=== PATIENT | female | born 2000 | race Caucasian/White ===

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

== ENCOUNTER 2022-01-21 17:33 | Outpatient (REF) | payer OTHER, SELFPAY | END 2022-01-21 17:34 | disposition home or self-care (01) | LOC: LBN 17:33 | PROVIDERS: PCP Nurse Practitioner Family; Visit Provider Physician Assistant Medical | DX: R35.0 Frequency of micturition (principal) | CPT/HCPCS: 87077; 87086; 87186 ==

== ENCOUNTER 2022-01-24 09:22 | Outpatient (REF) | payer OTHER, SELFPAY ==
[2022-01-24 15:27] LABS: HCT 46.3 % (36.0-46.0); HGB 14.9 g/dL (11.2-15.7); MCH 28.2 pg (27.0-33.0); MCHC 32.2 % (32.0-36.0); MCV 88 fL (80-95); MPV 12.1 fL (8.0-11.0); Platelet Count 334 10^3/uL (130-400); RBC 5.29 10^6/uL (3.93-5.22); RDW 12.5 % (11.7-14.6); RDW-SD 40.4 fL; WBC 8.54 10^3/uL (4.4-10.8)
[2022-01-24 16:30] LABS: Vitamin D 25 Total 45.8 ng/mL (30-100)
[2022-01-24 16:35] LABS: TSH (W/Ref FT4) < 0.01 uIU/mL (0.36-3.74)
[2022-01-24 16:51] LABS: FREE T4 2.35 ng/dL (0.76-1.46)
== END 2022-01-24 09:23 | disposition home or self-care (01) ==
LOC: NCHCN 09:22
PROVIDERS: PCP Nurse Practitioner Family; Visit Provider Nurse Practitioner Family
DX: F41.8 Other specified anxiety disorders (principal); F32.9 Major depressive disorder, single episode, unspecified; F98.8 Other specified behavioral and emotional disorders with onset usually occurring in childhood and adolescence
CPT/HCPCS: 82306; 85027; 84439; 84443

== ENCOUNTER 2022-02-09 18:17 | Outpatient (REF) | payer OTHER, SELFPAY ==
[2022-02-09 15:58] LABS: Vitamin B12 536 pg/mL (193-986)
[2022-02-09 16:19] LABS: TSH < 0.01 uIU/mL (0.36-3.74)
[2022-02-09 22:36] LABS: Thyroglobulin Antibody 111 U/mL (<=60); Thyroperoxidase Antibody 110 U/mL (<=60)
== END 2022-02-09 18:18 | disposition home or self-care (01) ==
LOC: NCHCN 18:17
PROVIDERS: PCP Nurse Practitioner Family; Visit Provider Nurse Practitioner Family
DX: R89.9 Unspecified abnormal finding in specimens from other organs, systems and tissues (principal)
CPT/HCPCS: 86376; 82607; 84443

== ENCOUNTER 2022-05-24 15:19 | Outpatient (REF) | payer OTHER, SELFPAY ==
[2022-05-24 15:32] LABS: Abs Immature Grans 0.02 10^3/uL (0.0-0.06); Absolute Basophil Count 0.04 10^3/uL (0.0-0.2); Absolute Eosinophil Count 0.43 10^3/uL (0.0-0.7); Absolute Lymphocyte Count 3.36 10^3/uL (1.2-3.4); Absolute Monocyte Count 0.72 10^3/uL (0.1-0.8); Absolute Neutrophil Count 5.64 10^3/uL (1.2-6.7); Basophils % 0.4; Eosinophils % 4.2; HCT 43.6 % (36.0-46.0); HGB 14.4 g/dL (11.2-15.7); Immature Grans % 0.2; Lymphocytes % 32.9; MCH 29.6 pg (27.0-33.0); MCV 90 fL (80-95); MPV 11.2 fL (8.0-11.0); Monocytes % 7.1; Neutrophils % 55.2; Platelet Count 345 10^3/uL (130-400); RBC 4.87 10^6/uL (3.93-5.22); RDW 12.6 % (11.7-14.6); RDW-SD 41.9 fL; WBC 10.21 10^3/uL (4.4-10.8)
[2022-05-24 17:20] LABS: FREE T4 1.22 ng/dL (0.76-1.46)
[2022-05-24 17:29] LABS: TSH < 0.01 uIU/mL (0.36-3.74)
== END 2022-05-24 15:20 | disposition home or self-care (01) ==
LOC: NCHCN 15:19
PROVIDERS: PCP Nurse Practitioner Family; Visit Provider Nurse Practitioner Family
DX: E05.90 Thyrotoxicosis, unspecified without thyrotoxic crisis or storm (principal); F41.8 Other specified anxiety disorders; M54.2 Cervicalgia
CPT/HCPCS: 84439; 84443; 84480; 85025

== ENCOUNTER 2022-06-14 18:15 | Outpatient (REF) | payer OTHER, SELFPAY ==
[2022-06-14 21:29] LABS: Bilirubin Negative (Negative); Blood Moderate (Negative); Clarity Cloudy (Clear); Glucose Negative (Negative); Ketones Trace mg/dL (Negative); Leukocyte Esterase Large (Negative); Nitrite Negative (Negative); Specific Gravity 1.025 (1.005-1.025)
[2022-06-14 22:00] LABS: WBC >50 HPF (0-5)
[2022-06-14 22:02] LABS: C & S Indicated? Yes
== END 2022-06-14 18:16 | disposition home or self-care (01) ==
LOC: LBN 18:15
PROVIDERS: PCP Nurse Practitioner Family; Visit Provider Nurse Practitioner Family
DX: R39.9 Unspecified symptoms and signs involving the genitourinary system (principal)
CPT/HCPCS: 87077; 81003; 81015; 87086; 87186

== ENCOUNTER 2022-06-15 10:01 | Emergency (ER) | payer OTHER, SELFPAY ==
[2022-06-15 10:05] VITALS: BP 118/73; PULSE 65; RESP 20; TEMP 36.9; O2SAT 98
--- NOTE | 2022-06-15 10:15 | DI.CT_ITS ---
Exam(s) CT RENAL COLIC WO EXAM: CT RENAL COLIC WO CLINICAL HISTORY: Flank Pain, R/O Kidney stone, Pyelo. TECHNIQUE: Imaging Protocol: Axial computed tomography images with coronal and sagittal reformatted images were created and reviewed. COMPARISON: CT ABD PELVIS WITH CONTRAST from 02/10/2018 FINDINGS: ABDOMEN: Lung Bases: Normal where visualized. Liver: Normal density. No measurable mass. Gallbladder and biliary tract: No radiodense calculus or biliary ductal dilation. Pancreas: Normal density, no abnormal calcifications or inflammatory process. Spleen: Normal. Kidneys: Normal size, contour and axis.No radiodense stones or obstructive uropathy. No masses seen. Adrenal glands: No mass is seen. Lymph nodes: Within normal limits. Abdominal Aorta: Abdominal portion non-dilated. PELVIS: Bladder:Symmetric distention, no gross wall thickening. Bowel: No obstruction or bowel wall thickening. Appendix is unremarkable. There is a large amount of stool throughout the colon. Peritoneal cavity: No ascites, collection or mesenteric inflammatory response. No free air. Reproductive organs: Unremarkable as visualized. Bones: Within normal limits. Soft Tissues: Within normal limits. IMPRESSION: 1. No evidence of nephrolithiasis or hydronephrosis. 2. Large amount of stool throughout the colon which may represent constipation. 3. Findings were discussed with Helga Willingham at 11:28 a.m. on 06/15/2022. RADIATION DOSE DELIVERED: 817.87mGy.cm Total DLP DATA REPOSITORY: All CT scans at this facility are submitted to the National Radiology Data Registry (NRDR) Dose Index Registry (DIR) with the [employer] ([employer]). RADIATION OPTIMIZATION: All CT scans at this facility use at least one of these dose optimization te chniques: automated exposure control; mA and/or kV adjustment per patient size (includes targeted exa ms where dose is matched to clinical indication); or iterative reconstruction.
--- NOTE | 2022-06-15 10:16 | W.ED.GENAD ---
Discharge Plan Disposition Patient Disposition: HOME Condition: Stable Discharge Details Clinical Impression: Flank pain, Constipation Primary Care Provider: Yarelis Eric ED Provider: Helga Willingham Home Meds and New Rx's Prescriptions: New cephalexin 500 mg tablet 500 mg PO BID 7 Days Qty: 14 0RF Rx Instructions: Take one tablet twice daily x 7 days phenazopyridine [Pyridium] 100 mg tablet 100 mg PO TID PRNQty: 6 0RF Discontinued nitrofurantoin monohyd/m-cryst [Macrobid] 100 mg capsule 100 mg PO Q12H Qty: 10 0RF Rx Instructions: must administer with a meal/food. Take 1 pill every 12 hours x 5 days No Action paroxetine HCl [Paxil] 10 mg tablet 10 mg PO DAILY methimazole 10 mg tablet 10 mg PO DAILY metoprolol tartrate 37.5 mg tablet 37.5 mg PO DAILY phenazopyridine [Pyridium] 100 mg tablet 100 mg PO TID PRN (Reason: pain) Qty: 6 0RF Rx Instructions: take 1 pill every 8 hours as needed for bladder spasm albuterol sulfate [ProAir HFA] 8.5 GM HFA aerosol inhaler 4 puff Inhalation Q4H PRN Qty: 1 2RF Rx Instructions: 4 puffs every 4 hours as needed decrease to 2 puffs as you improve ibuprofen 600 MG tablet 600 mg PO Q6H PRN Qty: 25 1RF Zyrtec 10 MG capsule 1 tab PO DAILY PRNQty: 90 fluticasone propionate [Flovent HFA] 110 mcg/actuation HFA aerosol inhaler 2 puff Inhalation DAILY Qty: 1 3RF levonorgestrel-ethinyl estrad [Jolessa] 0.15 mg-30 mcg (91) tablets,dose pack,3 month 1 tab PO DAILY Qty: 91 0RF Discharge Instructions Instructions: Constipation (ED) Additional Instructions: The CT shows no evidence for kidney stone. However it does appear that you are moderately constipated this could attribute to some of your pain and discomfort. Please stop the nitrofurantoin or Macrobid antibiotic and begin the Keflex or cephalexin. I am also prescribing you some Pyridium which will turn your urine bright orange and it helps with the pain. Follow up with primary care provider in 3-5 days. Return to ED sooner if any worsening or concerns. Increase oral fluids. Please take Tylenol or Ibuprofen with food every 4-6 hours as needed for pain and swelling. Referrals: Yarelis Eric [Primary Care Provider] - 5 days Discharge Data Discharge Date/Time-TO BE ENTERED AT DEPARTURE: 06/15/22 11:44 Medical Decision Making 29-year-old female presents to the ER with chief complaint of bilateral flank pain which began this morning. She was seen at urgent care yesterday diagnosed with a UTI placed on Macrobid. She denies any vomiting however does endorse nausea. CBC CMP, CT ordered liter fluid and Zofran. Patient did have a negative test yesterday while at urgent care. And she is currently on her normal menses. Differential diagnosis include UTI, pyelonephritis, kidney stone. Will consider changing her antibiotic to cephalexin. CT shows constipation, labs are largely within normal limits. No evidence of kidney stone or Ebenezer on the CT. I will change her antibiotic to cephalexin. This text was generated using [employer] dictation system, please disregard any oddities of phrase or misspellings. Lab Data Lab results reviewed: Yes I reviewed the patient's lab results. Labs: Laboratory Tests Range/Units 06/15/22 06/15/22 10:32 10:32 WBC (4.4-10.8) 10^3/uL 8.85 RBC (3.93-5.22) 10^6/uL 5.01 Hgb (11.2-15.7) g/dL 15.0 Hct (36.0-46.0) % 44.9 MCV (80-95) fL 90 MCH (27.0-33.0) pg 29.9 MCHC (32.0-36.0) % 33.4 RDW (11.7-14.6) % 12.4 Plt Count (130-400) 10^3/uL 377 MPV (8.0-11.0) fL 10.5 Immature Gran % 0.2 Neutrophils % 54.4 Lymphocytes % 31.1 Monocytes % 7.5 Eosinophils % 6.1 Basophils % 0.7 Nucleated RBC % (0.0-0.3) % 0.0 Absolute Neutrophils (1.2-6.7) 10^3/uL 4.82 Absolute Lymphocytes (1.2-3.4) 10^3/uL 2.75 Absolute Monocytes (0.1-0.8) 10^3/uL 0.66 Absolute Eosinophils (0.0-0.7) 10^3/uL 0.54 Absolute Basophils (0.0-0.2) 10^3/uL 0.06 Sodium (136-145) mmol/L 139 Potassium (3.5-5.1) mmol/L 4.3 Chloride (98-107) mmol/L 104 Carbon Dioxide (21.0-32.0) mmol/L 28.9 Anion Gap (3-11) mmol/L 6.1 BUN (7-18) mg/dL 7 Creatinine (0.55-1.02) mg/dL 0.9 Est GFR (CKD-EPI 2020) (mL/min/1.73m2) 93.86 Glucose (74-106) mg/dL 99 Calcium (8.5-10.1) mg/dL 9.2 Total Bilirubin (0.2-1.0) mg/dL 0.3 AST (15-37) U/L 30 ALT (14-59) U/L 39 Alkaline Phosphatase (46-116) U/L 127 H Total Protein (6.4-8.2) g/dL 7.9 Albumin (3.4-5.0) g/dL 3.9 HPI General Mode of arrival: ambulatory. Date/Time Provider Initiated Documentation: 06/15/22 10:08. Limitations to Documentation: no limitations. Information obtained by: patient, RN notes reviewed and old records reviewed. HPI Narrative: 29-year-old female presents to the ER with chief complaint of bilateral flank pain which began this morning. She was seen at urgent care yesterday diagnosed with a UTI placed on Macrobid. She denies any vomiting however does endorse nausea. She is currently on her normal menses. She does have a past medical history of asthma and anxiety. Related Data Home Medications Medication Instructions Recorded Confirmed albuterol sulfate 90 mcg/actuation 4 puff inhalation Q4H PRN ##1 06/15/17 06/15/22 aerosol inhaler (ProAir HFA) ibuprofen 600 mg tablet 600 mg PO Q6H PRN #25 tab-caps 07/03/17 06/15/22 cetirizine 10 mg capsule (Zyrtec) 1 tab PO DAILY PRN #90 tabs 07/25/17 06/15/22 paroxetine HCl 10 mg tablet (Paxil) 10 mg PO DAILY 04/13/18 05/10/22 fluticasone propionate 110 2 puff inhalation DAILY ##1 07/12/18 06/15/22 mcg/actuation HFA aerosol inhaler (Flovent HFA) levonorgestrel 0.15 mg-ethinyl 1 tab PO DAILY #91 dose pk 07/30/19 06/15/22 estradiol 30 mcg tablets,3 mos pack(91) (Luz Maria) methimazole 10 mg tablet 10 mg PO DAILY 05/10/22 06/15/22 metoprolol tartrate 37.5 mg tablet 37.5 mg PO DAILY 05/10/22 06/15/22 phenazopyridine 100 mg tablet 100 mg PO TID PRN pain 6 doses #6 06/14/22 06/15/22 (Pyridium) tabs cephalexin 500 mg tablet 500 mg PO BID 7 days #14 tabs 06/15/22 phenazopyridine 100 mg tablet 100 mg PO TID PRN 6 doses #6 tabs 06/15/22 (Pyridium) Previous Rx's Medication Instructions Recorded albuterol sulfate 90 mcg/actuation 4 puff inhalation Q4H PRN ##1 06/15/17 aerosol inhaler (ProAir HFA) ibuprofen 600 mg tablet 600 mg PO Q6H PRN #25 tab-caps 07/03/17 fluticasone propionate 110 2 puff inhalation DAILY ##1 07/12/18 mcg/actuation HFA aerosol inhaler (Flovent HFA) levonorgestrel 0.15 mg-ethinyl 1 tab PO DAILY #91 dose pk 07/30/19 estradiol 30 mcg tablets,3 mos pack(91) (Cleolessa) phenazopyridine 100 mg tablet 100 mg PO TID PRN pain 6 doses #6 06/14/22 (Pyridium) tabs cephalexin 500 mg tablet 500 mg PO BID 7 days #14 tabs 06/15/22 phenazopyridine 100 mg tablet 100 mg PO TID PRN 6 doses #6 tabs 06/15/22 (Pyridium) Allergies Allergy/AdvReac Type Severity Reaction Status Date / Time No Known Allergies Allergy Verified 06/14/22 17:22 General Stated Complaint: FlankPain GRACIELA: 3 Review of Systems All systems reviewed & are unremarkable except as noted in HPI and below Genitourinary Genitourinary: Reports as per HPI and Reports flank pain PFSH All Active Problems (Updated 06/15/22 @ 11:34 by Helga Willingham NP) Flank pain (Acute) Constipation (Acute) Contraception (Acute 04/24/17) Asthma (Acute 03/06/14) Anxiety (Acute 03/28/17) Family History Mother Diabetes 2014 - diet & oral agents for control Dysmenorrhea Mental disorder depression & anxiety Grandfather Diabetes Grandmother Diabetes Maternal Aunt Dysmenorrhea maternal Brother Mental disorder depression & anxiety Social History Smoking/Tobacco Use Status: Never Smoking risk assessment performed?: Yes Alcohol Intake: never Drug use: Never Substance use type: does not use Seatbelt use: always Do you feel safe at home: Yes Do you feel safe in your relationship?: Yes Female Reproductive History Menstrual control method: pills History History 0 Para Hx # Term Pregnancies Multiple births Hx # Pregnancies Ectopic pregnancies AB induced Hx Number of Living Children AB spontaneous Exam Narrative Exam Narrative: Constitutional: Alert and oriented x3. Appears stated age. Normal body habitus. Head: Normocephalic, no trauma. Eyes: Pupils PERRL, Red reflex noted, EOM's intact. Eyelids symmetrical without lesions, discharge, or swelling. . Chest: RRR, Normal S1, S2, distal pulses intact. Resp: Lungs clear to auscultation bilaterally, no wheezes, rales, or rhonchi. Abdomen: Soft, non-distended, slight tenderness suprapubically bilaterally. Normoactive bowel sounds all 4 quads. Bilateral flank pain with palpation. Musculoskeletal: Normal gait, 5/5 strength to all four extremities. Skin: No suspicious rashes or lesions. Capillary refill less than 2 sec. Hematologic/Lymphatic: No ecchymosis, no lymphadenopathy. Course Vital Signs Vital signs: Vital Signs Temperature 36.9 C 06/15/22 10:05 Pulse 65 06/15/22 10:05 Respiratory Rate 20 06/15/22 10:05 Blood Pressure 118/73 06/15/22 10:05 Pulse Oximetry 98 06/15/22 10:05 Temperature 36.9 C 06/15/22 10:05 Temperature Source Temporal Artery Scan 06/15/22 10:05 Pulse 65 06/15/22 10:05 Respiratory Rate 20 06/15/22 10:05 Respiratory Effort Non-Labored 06/15/22 10:13 Blood Pressure 118/73 06/15/22 10:05 Blood Pressure Position Sitting 06/15/22 10:05 Pulse Oximetry 98 06/15/22 10:05 Oxygen Delivery Method Room Air 06/15/22 10:05 Oxygen Flow Rate 0 06/15/22 10:05
[2022-06-15] MEDS: Normal Saline 1,000 ML 1000 ML IV (10:35)
[2022-06-15] MEDS: Ondansetron 4 MG/2 ML VIAL IVP (10:35)
[2022-06-15 10:37] LABS: Abs Immature Grans 0.02 10^3/uL (0.0-0.06); Absolute Basophil Count 0.06 10^3/uL (0.0-0.2); Absolute Eosinophil Count 0.54 10^3/uL (0.0-0.7); Absolute Lymphocyte Count 2.75 10^3/uL (1.2-3.4); Absolute Monocyte Count 0.66 10^3/uL (0.1-0.8); Absolute Neutrophil Count 4.82 10^3/uL (1.2-6.7); Basophils % 0.7; Eosinophils % 6.1; HCT 44.9 % (36.0-46.0); Immature Grans % 0.2; Lymphocytes % 31.1; MCH 29.9 pg (27.0-33.0); MCHC 33.4 % (32.0-36.0); MCV 90 fL (80-95); MPV 10.5 fL (8.0-11.0); Monocytes % 7.5; Neutrophils % 54.4; Platelet Count 377 10^3/uL (130-400); RBC 5.01 10^6/uL (3.93-5.22); RDW 12.4 % (11.7-14.6); RDW-SD 40.8 fL; WBC 8.85 10^3/uL (4.4-10.8)
[2022-06-15 10:51] LABS: ALT 39 U/L (14-59); AST 30 U/L (15-37); Albumin 3.9 g/dL (3.4-5.0); Alkaline Phosphatase 127 U/L (46-116); Anion Gap 6.1 mmol/L (3-11); BUN 7 mg/dL (7-18); Bilirubin, Total 0.3 mg/dL (0.2-1.0); CO2 28.9 mmol/L (21.0-32.0); CREATININE 0.9 mg/dL (0.55-1.02); Calcium 9.2 mg/dL (8.5-10.1); Chloride 104 mmol/L (98-107); Estimated GFR 93.86 (mL/min/1.73m2); Glucose 99 mg/dL (74-106); Potassium 4.3 mmol/L (3.5-5.1); Sodium 139 mmol/L (136-145); Total Protein 7.9 g/dL (6.4-8.2)
== END 2022-06-15 11:44 | disposition home or self-care (01) ==
PROVIDERS: Emergency Provider Registered Nurse Emergency; PCP Nurse Practitioner Family
DX: R10.9 Unspecified abdominal pain (principal); K59.00 Constipation, unspecified; R11.0 Nausea
CPT/HCPCS: 36415; 80053; 96361; 96374; 99284; 74176; 85025; 99283; J2405

== ENCOUNTER 2022-06-27 12:03 | Outpatient (REF) | payer OTHER, SELFPAY ==
[2022-06-27 16:36] LABS: FREE T4 0.98 ng/dL (0.76-1.46)
[2022-06-27 16:37] LABS: TSH < 0.01 uIU/mL (0.36-3.74)
== END 2022-06-27 12:04 | disposition home or self-care (01) ==
LOC: NCHCN 12:03
PROVIDERS: PCP Nurse Practitioner Family; Visit Provider Nurse Practitioner Family
DX: Z00.00 Encounter for general adult medical examination without abnormal findings (principal); E05.90 Thyrotoxicosis, unspecified without thyrotoxic crisis or storm
CPT/HCPCS: 84439; 84443; 84480

== ENCOUNTER 2022-07-23 16:39 | Emergency (ER) | payer OTHER, SELFPAY ==
[2022-07-23 16:59] VITALS: BP 143/87; PULSE 67; RESP 16; TEMP 36.9; O2SAT 100
[2022-07-23 18:26] LABS: COVID-19 PCR Negative (Negative); Influenza A PCR Negative (Negative); Influenza B PCR Negative (Negative); RSV PCR Negative (Negative)
[2022-07-23 18:31] LABS: Source Nasopharynx
--- NOTE | 2022-07-23 19:05 | ED.GENADUL_ITS ---
Discharge Plan Disposition Patient Disposition: Home Condition: Improving Discharge Details Clinical Impression: Headache Primary Care Provider: Yarelis Eric ED Provider: Rebecca Dockery Home Meds and New Rx's Prescriptions: Continued methimazole 10 mg tablet 5 mg PO DAILY metoprolol tartrate 37.5 mg tablet 37.5 mg PO DAILY PRN albuterol sulfate [ProAir HFA] 8.5 GM HFA aerosol inhaler 4 puff Inhalation Q4H PRN Qty: 1 2RF Rx Instructions: 4 puffs every 4 hours as needed decrease to 2 puffs as you improve ibuprofen 600 MG tablet 600 mg PO Q6H PRN Qty: 25 1RF Zyrtec 10 MG capsule 1 tab PO DAILY PRNQty: 90 fluticasone propionate [Flovent HFA] 110 mcg/actuation HFA aerosol inhaler 2 puff Inhalation DAILY Qty: 1 3RF levonorgestrel-ethinyl estrad [Jolessa] 0.15 mg-30 mcg (91) tablets,dose pack,3 month 1 tab PO DAILY Qty: 91 0RF omeprazole 20 mg capsule,delayed release(DR/EC) 1 cap PO DAILY Discharge Instructions Instructions: General Headache (ED) Additional Instructions: Drink 6 to 8 glasses of water daily to stay well-hydrated Can use ibuprofen and/or acetaminophen as directed if needed for symptoms Referrals: Yarelis Eric [Primary Care Provider] - Medical Decision Making Symptoms consistent with viral infection will obtain COVID flu RSV swab this has been reviewed and negative, give her 1 L of fluid with Compazine and Toradol 15 mg IV push. After her liter of fluid and medication she reports her symptoms are markedly improved. She is safe for discharge to home continue symptom management follow- up with primary care provider return here sooner for new or worsening symptoms HPI General Date/Time Provider Initiated Documentation: 07/23/22 16:52 . Limitations to Documentation: no limitations . Information obtained by: patient . HPI Narrative: This is a 22-year-old female patient with no significant past medical history who for 6 days has had headache nasal congestion left sided sinus pressure. She has had no fever no recent contact with people with similar symptoms Related Data Home Medications Medication Instructions Recorded Confirmed albuterol sulfate 90 mcg/actuation 4 puff inhalation Q4H PRN ##1 06/15/17 07/23/22 aerosol inhaler (ProAir HFA) ibuprofen 600 mg tablet 600 mg PO Q6H PRN #25 tab-caps 07/03/17 07/23/22 cetirizine 10 mg capsule (Zyrtec) 1 tab PO DAILY PRN #90 tabs 07/25/17 07/23/22 fluticasone propionate 110 2 puff inhalation DAILY ##1 07/12/18 07/23/22 mcg/actuation HFA aerosol inhaler (Flovent HFA) levonorgestrel 0.15 mg-ethinyl 1 tab PO DAILY #91 dose pk 07/30/19 07/23/22 estradiol 30 mcg tablets,3 mos pack(91) (Cleolessa) methimazole 10 mg tablet 5 mg PO DAILY 05/10/22 07/23/22 metoprolol tartrate 37.5 mg tablet 37.5 mg PO DAILY PRN 05/10/22 07/23/22 omeprazole 20 mg capsule,delayed 1 cap PO DAILY 07/23/22 07/23/22 release Previous Rx's Medication Instructions Recorded albuterol sulfate 90 mcg/actuation 4 puff inhalation Q4H PRN ##1 06/15/17 aerosol inhaler (ProAir HFA) ibuprofen 600 mg tablet 600 mg PO Q6H PRN #25 tab-caps 07/03/17 fluticasone propionate 110 2 puff inhalation DAILY ##1 07/12/18 mcg/actuation HFA aerosol inhaler (Flovent HFA) levonorgestrel 0.15 mg-ethinyl 1 tab PO DAILY #91 dose pk 07/30/19 estradiol 30 mcg tablets,3 mos pack(91) (Cleolessa) Allergies Allergy/AdvReac Type Severity Reaction Status Date / Time No Known Allergies Allergy Verified 06/14/22 17:22 General Stated Complaint: Headache GRACIELA: 3 Review of Systems All systems reviewed & are unremarkable except as noted in HPI and below Constitutional Constitutional: Denies fever(s), Reports headache(s) and Reports poor appetite Eyes Eyes: Denies loss of vision ENT Ears, Nose, Mouth, and Throat: Denies dizziness and Reports headache(s) Cardiovascular Cardiovascular: Denies chest pain Respiratory Respiratory: Denies chest congestion and Denies cough Gastrointestinal Gastrointestinal: Reports nausea and Denies vomiting Musculoskeletal Musculoskeletal: Denies back pain Neurologic Neurologic: Denies dizziness, Reports headache(s) and Denies loss of vision PFSH All Active Problems (Updated 07/23/22 @ 20:28 by Rebecca Dockery NP) Headache (Acute) Contraception (Acute 04/24/17) Asthma (Acute 03/06/14) Anxiety (Acute 03/28/17) Family History Mother Diabetes 2014 - diet & oral agents for control Dysmenorrhea Mental disorder depression & anxiety Grandfather Diabetes Grandmother Diabetes Maternal Aunt Dysmenorrhea maternal Brother Mental disorder depression & anxiety Social History Smoking/Tobacco Use Status: Never Smoking risk assessment performed?: Yes Alcohol Intake: never Drug use: Never Substance use type: does not use Seatbelt use: always Do you feel safe at home: Yes Do you feel safe in your relationship?: Yes Female Reproductive History Menstrual control method: pills History History 0 Para Hx # Term Pregnancies Multiple births Hx # Pregnancies Ectopic pregnancies AB induced Hx Number of Living Children AB spontaneous Exam Const General: cooperative, healthy appearing, comfortable and no acute distress Nutritional Appearance: average body habitus Orientation: alert, awake and oriented x3 HENMT Head: normal to inspection, normocephalic and atraumatic Mouth: oral mucosae normal Resp Effort & Inspection: normal respiratory effort Auscultation: clear to auscultation bilaterally Cardio Rate: regular rate Rhythm: regular rhythm GI Inspection: normal to inspection Palpation: soft Skin General skin exam: no rashes or lesions noted Neuro General: patient alert, patient awake, patient oriented x3 and no focal motor deficits Cognition: normal cognition Speech: speech normal Gait: normal gait Motor: muscle tone normal throughout Extrem General: normal to inspection and full ROM Course Vital Signs Vital signs: Vital Signs Temperature 36.9 C 07/23/22 16:59 Pulse 67 07/23/22 16:59 Respiratory Rate 16 07/23/22 16:59 Blood Pressure 143/87 H 07/23/22 16:59 Pulse Oximetry 100 07/23/22 16:59 Temperature 36.9 C 07/23/22 16:59 Pulse 67 07/23/22 16:59 Respiratory Rate 16 07/23/22 16:59 Respiratory Effort 07/23/22 17:04 Blood Pressure 143/87 H 07/23/22 16:59 Blood Pressure Position Sitting 07/23/22 16:59 Pulse Oximetry 100 07/23/22 16:59 Oxygen Delivery Method Room Air 07/23/22 16:59 Oxygen Flow Rate 0 07/23/22 16:59 Pain Level 5 07/23/22 16:59 Lab/Test Results Lab/Test Results: Laboratory Tests Range/Units 07/23/22 17:45 COVID-19 Source Nasopharynx SARS-CoV-2 (PCR) (Negative) Negative Influenza Type A (PCR) (Negative) Negative Influenza Type B (PCR) (Negative) Negative RSV (PCR) (Negative) Negative
[2022-07-23] MEDS: Ketorolac 15 MG/ML VIAL IVP (19:12)
[2022-07-23] MEDS: Prochlorperazine 10 MG/2 ML VIAL IVP (19:12)
[2022-07-23] MEDS: Normal Saline 1,000 ML 1000 ML IV (19:26)
[2022-07-23 20:46] VITALS: BP 119/75; PULSE 54; RESP 16; TEMP 36.5; O2SAT 98
== END 2022-07-23 20:49 | disposition home or self-care (01) ==
PROVIDERS: Emergency Provider Nurse Practitioner Acute Care; PCP Nurse Practitioner Family
DX: R51.9 Headache, unspecified (principal)
CPT/HCPCS: 87637; 96361; 96374; 96375; 99284; 99283; J0780; J1885

== ENCOUNTER 2022-07-24 18:10 | Emergency (ER) | payer OTHER, SELFPAY ==
[2022-07-24 18:18] VITALS: BP 137/83; PULSE 96; RESP 18; TEMP 37.2; O2SAT 99
--- NOTE | 2022-07-24 19:00 | DI.CT_ITS ---
Exam(s) CT HEAD SINUS WO EXAM: CT HEAD SINUS WO CLINICAL HISTORY: headache left eye/sinus pressure. TECHNIQUE: Imaging Protocol: Axial computed tomography images with coronal and sagittal reformatted images were created and reviewed COMPARISON: No exams were available for comparison FINDINGS: CT Head: Ventricles and Extra axial spaces: Normal in size and morphology for the patient's age. Hemorrhage: None. Cerebral parenchyma: Normal. Midline shift: None. Brainstem/Cerebellum: Normal. Calvarium: Normal. Visualized Paranasal sinuses/Mastoids: Clear. Soft Tissues: Unremarkable. CT Face: Facial Bones: No fracture is noted in facial bones. Sinuses and Mastoids: Minimal mucosal thickening floors of the maxillary sinuses. Remaining sinuses clear. Globes, extraocular muscles, optic nerves and retrobulbar fat: Normal. Upper aerodigestive tract: Normal. Mandible and bilateral temporomandibular joints: Normal. Soft tissues: Normal. IMPRESSION: 1. Negative head CT. 2. Minimal mucosal thickening of maxillary sinuses.. RADIATION DOSE DELIVERED: 813.64mGy.cm Total DLP DATA REPOSITORY: All CT scans at this facility are submitted to the National Radiology Data Registry (NRDR) Dose Index Registry (DIR) with the [employer] (ACR). RADIATION OPTIMIZATION: All CT scans at this facility use at least one of these dose optimization te chniques: automated exposure control; mA and/or kV adjustment per patient size (includes targeted exa ms where dose is matched to clinical indication); or iterative reconstruction.
--- NOTE | 2022-07-24 19:37 | ED.GENADUL_ITS ---
Discharge Plan Disposition Patient Disposition: Home Condition: Improving Discharge Details Clinical Impression: Headache Primary Care Provider: Yarelis Eric ED Provider: José Miguel Martin Home Meds and New Rx's Prescriptions: Continued methimazole 10 mg tablet 5 mg PO DAILY metoprolol tartrate 37.5 mg tablet 37.5 mg PO DAILY PRN albuterol sulfate [ProAir HFA] 8.5 GM HFA aerosol inhaler 4 puff Inhalation Q4H PRN Qty: 1 2RF Rx Instructions: 4 puffs every 4 hours as needed decrease to 2 puffs as you improve ibuprofen 600 MG tablet 600 mg PO Q6H PRN Qty: 25 1RF Zyrtec 10 MG capsule 1 tab PO DAILY PRNQty: 90 fluticasone propionate [Flovent HFA] 110 mcg/actuation HFA aerosol inhaler 2 puff Inhalation DAILY Qty: 1 3RF levonorgestrel-ethinyl estrad [Jolessa] 0.15 mg-30 mcg (91) tablets,dose pack,3 month 1 tab PO DAILY Qty: 91 0RF omeprazole 20 mg capsule,delayed release(DR/EC) 1 cap PO DAILY Discharge Instructions Instructions: General Headache (ED) Additional Instructions: If you develop a fever, stiff neck, or severe worsening of symptoms along with new neurological symptoms please return immediately to the emergency department for reassessment. Otherwise follow-up with your primary care provider for recheck of your symptoms and further treatment or testing as needed. You may continue to use [id number] Excedrin Migraine as directed on packaging and use the provided nausea medication for nausea just when needed. Referrals: Yarelis Eric [Primary Care Provider] - 5 days Discharge Data Discharge Date/Time-TO BE ENTERED AT DEPARTURE: 07/24/22 21:57 Medical Decision Making Patient presenting to the emergency department for chief complaint of headache and left eye blurry vision. Patient reports that she did have some mild cold symptoms and came in yesterday due to continued headache and was tested for COVID flu RSV which which she was negative for. She did receive Toradol and Compazine and did help her symptoms but this morning symptoms remain persistent and she attempted to use Tylenol, ibuprofen, and Excedrin Migraine with little to no benefit. Patient denies any return of fever chills, stiff neck, vomiting or other focal neurological findings. Physical exam is unremarkable with no findings noted. Given patient's return, duration of symptoms, and stating that she has never had a headache like this before we will perform imaging, and labs including TSH due to patient stating history of Graves' disease. Review of labs show an overall unremarkable CBC with only slight elevation of MPV and absolute lymphocytes of 3.5, ESR is 1, CMP is completely unremarkable, and TSH is 0.57. Pending CT imaging results reassessed patient she did state improvement of discomfort with pain rating now at a 4 compared to an 8. We will continue to monitor pending imaging results. Reviewed CT imaging and radiologist interpretation that shows no acute findings. Patient reassessed after fluids are complete Reassessed patient and she states both improvement of headache and vision. I feel this is reassuring. Will discharge patient with home Zofran as needed for further nausea, encouraged to continue to use Excedrin Migraine, and recommended patient to follow-up with primary care provider preferably later this week for recheck of headache and further treatment or referral as needed. After discussion of diagnosis and plan of care patient has no further needs, questions, or concerns and states clear understanding to return to the emergency department for any worsening symptoms. This documentation was generated using [employer] dictation system, please disregard any oddities of phrase or misspellings. Imaging Data Radiologic Study: Imaging: CT Scan Radiologist's impression: Exam: CT Head Without Contrast Exam date and time: 07/24/2022 8:02 PM Age: 22 years old Clinical indication: Eye pain and headache; Type not specified; Patient HX: Headache left eye/ sinus pressure TECHNIQUE: Imaging protocol: Computed tomography of the head without contrast. COMPARISON: No relevant prior studies available. FINDINGS: Brain: Normal. No hemorrhage. Unremarkable white matter. No mass effect. Cerebral ventricles: No ventriculomegaly. Paranasal sinuses: Visualized sinuses are unremarkable. No fluid levels. Mastoid air cells: Visualized mastoid air cells are well aerated. Bones/joints: Unremarkable. No acute fracture. Soft tissues: Unremarkable. IMPRESSION: No acute intracranial abnormality. PROCEDURE INFORMATION: Exam: CT Maxillofacial Without Contrast, Sinus Exam date and time: 07/24/2022 8:02 PM Age: 22 years old Clinical indication: Eye pain and headache; Type not specified; Patient HX: Headache left eye/ sinus pressure TECHNIQUE: Imaging protocol: CT Maxillofacial without contrast. Focus on the sinuses. COMPARISON: No relevant prior studies available. FINDINGS: Frontal sinuses: Normal. No air-fluid levels. Ethmoid sinuses: Normal. No air-fluid levels. Sphenoid sinuses: Normal. No air-fluid levels. Maxillary sinuses: Minimal mucosal thickening. No air-fluid levels. Ostiomeatal units are patent. Nasal cavity: Unremarkable. Orbital cavities: Orbits are normal. Globes are unremarkable. Bones/joints: Unremarkable. Soft tissues: Unremarkable. IMPRESSION: No acute sinusitis detected HPI General Mode of arrival: ambulatory . Date/Time Provider Initiated Documentation: 07/24/22 18:19 . Limitations to Documentation: no limitations . Information obtained by: patient . History of Present Illness 22 year old F presents to the emergency department with the chief complaint of headache and left eye pain , described as moderate, with intensity rated at 8. Quality is described as aching, and is localized to the head, eyes and left. Patient reports no radiation. Patient started experiencing this week(s) (1) and it has been constant. Medication improves symptom(s), No exacerbating factors reported . Patient did receive the following treatments prior to arrival, other (Multiple [id number] meds) Related Data Home Medications Medication Instructions Recorded Confirmed albuterol sulfate 90 mcg/actuation 4 puff inhalation Q4H PRN ##1 06/15/17 07/24/22 aerosol inhaler (ProAir HFA) ibuprofen 600 mg tablet 600 mg PO Q6H PRN #25 tab-caps 07/03/17 07/24/22 cetirizine 10 mg capsule (Zyrtec) 1 tab PO DAILY PRN #90 tabs 07/25/17 07/24/22 fluticasone propionate 110 2 puff inhalation DAILY ##1 07/12/18 07/24/22 mcg/actuation HFA aerosol inhaler (Flovent HFA) levonorgestrel 0.15 mg-ethinyl 1 tab PO DAILY #91 dose pk 07/30/19 07/24/22 estradiol 30 mcg tablets,3 mos pack(91) (Luz Maria) methimazole 10 mg tablet 5 mg PO DAILY 05/10/22 07/24/22 metoprolol tartrate 37.5 mg tablet 37.5 mg PO DAILY PRN 05/10/22 07/24/22 omeprazole 20 mg capsule,delayed 1 cap PO DAILY 07/23/22 07/24/22 release Previous Rx's Medication Instructions Recorded albuterol sulfate 90 mcg/actuation 4 puff inhalation Q4H PRN ##1 06/15/17 aerosol inhaler (ProAir HFA) ibuprofen 600 mg tablet 600 mg PO Q6H PRN #25 tab-caps 07/03/17 fluticasone propionate 110 2 puff inhalation DAILY ##1 07/12/18 mcg/actuation HFA aerosol inhaler (Flovent HFA) levonorgestrel 0.15 mg-ethinyl 1 tab PO DAILY #91 dose pk 07/30/19 estradiol 30 mcg tablets,3 mos pack(91) (Luz Maria) Allergies Allergy/AdvReac Type Severity Reaction Status Date / Time No Known Allergies Allergy Verified 07/24/22 18:29 General Stated Complaint: Headache GRACIELA: 3 Review of Systems Constitutional Constitutional: Denies body ache(s), Denies chills, Denies fever(s) and Reports headache(s) Eyes Eyes: Reports exophthalmos and Reports photophobia ENT Ears, Nose, Mouth, and Throat: Denies dizziness, Reports headache(s), Reports nasal congestion, Reports sinus pain, Reports sinus pressure and Denies sore throat Cardiovascular Cardiovascular: Denies chest pain and Denies syncope Respiratory Respiratory: Denies cough Gastrointestinal Gastrointestinal: Reports nausea and Denies vomiting Integumentary/Breasts Skin/Breast: Denies rash Neurologic Neurologic: Reports as per HPI, Denies dizziness, Denies syncope, Reports headache(s) and Denies sensory deficit Psychiatric Psychiatric: Denies anxiety PFSH All Active Problems (Updated 07/24/22 @ 21:34 by José Miguel Martin NP) Headache (Acute) Contraception (Acute 04/24/17) Asthma (Acute 03/06/14) Anxiety (Acute 03/28/17) Family History Mother Diabetes 2013 - diet & oral agents for control Dysmenorrhea Mental disorder depression & anxiety Grandfather Diabetes Grandmother Diabetes Maternal Aunt Dysmenorrhea maternal Brother Mental disorder depression & anxiety Social History Smoking/Tobacco Use Status: Never Smoking risk assessment performed?: Yes Alcohol Intake: never Drug use: Never Substance use type: does not use Seatbelt use: always Do you feel safe at home: Yes Do you feel safe in your relationship?: Yes Female Reproductive History Menstrual control method: pills History History 0 Para Hx # Term Pregnancies Multiple births Hx # Pregnancies Ectopic pregnancies AB induced Hx Number of Living Children AB spontaneous Exam Const General: cooperative, healthy appearing, no acute distress and well groomed Orientation: alert, awake and oriented x3 HENMT Head: normal to inspection Ears: hearing grossly normal bilaterally and TM's normal bilaterally Mouth: oral mucosae normal and moist mucous membranes Throat: posterior oropharynx normal Eyes Visual Rosas: normal visual rosas by confrontation Alignment and Position: alignment normal Periorbital: periorbital findings normal Eyelids: eyelids normal Sclera: sclerae normal Cornea: corneas normal Pupils: PERRL EOM: EOM intact bilaterally Neck Neck: normal visual inspection, full ROM, no lymphadenopathy and no meningeal signs Resp Effort & Inspection: normal respiratory effort and able to speak in complete sentences Auscultation: clear to auscultation bilaterally Cardio Rate: regular rate Rhythm: regular rhythm Heart Sounds: S1 normal and S2 normal Neuro General: patient alert, patient awake, patient oriented x3, gait normal, tone normal, moves all extremities, CN's II-XI intact bilaterally and not confused Cognition: normal cognition Speech: speech normal Motor: muscle tone normal throughout, strength 5/5 throughout, no pronator drift, no movement abnormalities noted and no fasciculations Sensory Exam: no sensory deficits noted Coordination: Does not sway with eyes open Course Vital Signs Vital signs: Vital Signs Temperature 37.2 C 07/24/22 18:18 Pulse 96 H 07/24/22 18:18 Respiratory Rate 18 07/24/22 18:18 Blood Pressure 137/83 07/24/22 18:18 Pulse Oximetry 99 07/24/22 18:18 Temperature 37.2 C 07/24/22 18:18 Temperature Source Oral 07/24/22 18:18 Pulse 96 H 07/24/22 18:18 Respiratory Rate 18 07/24/22 18:18 Respiratory Effort Non-Labored 07/24/22 18:23 Blood Pressure 137/83 07/24/22 18:18 Blood Pressure Position Sitting 07/24/22 18:18 Pulse Oximetry 99 07/24/22 18:18 Oxygen Delivery Method Room Air 07/24/22 18:18 Oxygen Flow Rate 0 07/24/22 18:18 Pain Level 8 07/24/22 18:23 Lab/Test Results Lab/Test Results: POC- Test(urine) Negative
[2022-07-24] MEDS: Dexamethasone 10 MG/ML VIAL IVP (19:57)
[2022-07-24] MEDS: Ketorolac 30 MG/ML VIAL 15 MG IVP (19:59)
[2022-07-24] MEDS: diphenhydrAMINE 50 MG/ML VIAL 25 MG IVP (20:00)
[2022-07-24] MEDS: Normal Saline 1,000 ML 1000 ML IV (20:02)
[2022-07-24 20:10] LABS: Abs Immature Grans 0.01 10^3/uL (0.0-0.06); Absolute Basophil Count 0.07 10^3/uL (0.0-0.2); Absolute Eosinophil Count 0.43 10^3/uL (0.0-0.7); Absolute Monocyte Count 0.54 10^3/uL (0.1-0.8); Absolute Neutrophil Count 4.23 10^3/uL (1.2-6.7); Basophils % 0.8; Eosinophils % 4.9; HCT 41.2 % (36.0-46.0); HGB 13.4 g/dL (11.2-15.7); Immature Grans % 0.1; Lymphocytes % 39.9; MCH 29.3 pg (27.0-33.0); MCHC 32.5 % (32.0-36.0); MCV 90 fL (80-95); MPV 11.2 fL (8.0-11.0); Monocytes % 6.2; Neutrophils % 48.1; Platelet Count 309 10^3/uL (130-400); RBC 4.57 10^6/uL (3.93-5.22); RDW 12.7 % (11.7-14.6); RDW-SD 42.1 fL; WBC 8.78 10^3/uL (4.4-10.8)
[2022-07-24 20:12] LABS: ESR 1 mm/hr (0-20)
--- NOTE | 2022-07-24 20:18 | DI.VRAD_ITS ---
PROCEDURE INFORMATION: Exam: CT Head Without Contrast Exam date and time: 07/24/2022 8:02 PM Age: 22 years old Clinical indication: Eye pain and headache; Type not specified; Patient HX: Headache left eye/ sinus pressure TECHNIQUE: Imaging protocol: Computed tomography of the head without contrast. COMPARISON: No relevant prior studies available. FINDINGS: Brain: Normal. No hemorrhage. Unremarkable white matter. No mass effect. Cerebral ventricles: No ventriculomegaly. Paranasal sinuses: Visualized sinuses are unremarkable. No fluid levels. Mastoid air cells: Visualized mastoid air cells are well aerated. Bones/joints: Unremarkable. No acute fracture. Soft tissues: Unremarkable. IMPRESSION: No acute intracranial abnormality. PROCEDURE INFORMATION: Exam: CT Maxillofacial Without Contrast, Sinus Exam date and time: 07/24/2022 8:02 PM Age: 22 years old Clinical indication: Eye pain and headache; Type not specified; Patient HX: Headache left eye/ sinus pressure TECHNIQUE: Imaging protocol: CT Maxillofacial without contrast. Focus on the sinuses. COMPARISON: No relevant prior studies available. FINDINGS: Frontal sinuses: Normal. No air-fluid levels. Ethmoid sinuses: Normal. No air-fluid levels. Sphenoid sinuses: Normal. No air-fluid levels. Maxillary sinuses: Minimal mucosal thickening. No air-fluid levels. Ostiomeatal units are patent. Nasal cavity: Unremarkable. Orbital cavities: Orbits are normal. Globes are unremarkable. Bones/joints: Unremarkable. Soft tissues: Unremarkable. IMPRESSION: No acute sinusitis detected Dictated and Authenticated by: Dami Rangel MD. Ordering:MIKE Valdez MD
[2022-07-24 20:26] LABS: ALT 29 U/L (14-59); AST 23 U/L (15-37); Albumin 3.8 g/dL (3.4-5.0); Alkaline Phosphatase 104 U/L (46-116); Anion Gap 9.4 mmol/L (3-11); BUN 9 mg/dL (7-18); Bilirubin, Total 0.2 mg/dL (0.2-1.0); CO2 26.6 mmol/L (21.0-32.0); CREATININE 0.9 mg/dL (0.55-1.02); Calcium 8.9 mg/dL (8.5-10.1); Chloride 104 mmol/L (98-107); Estimated GFR 93.28 (mL/min/1.73m2); Glucose 81 mg/dL (74-106); Sodium 140 mmol/L (136-145); Total Protein 7.5 g/dL (6.4-8.2)
[2022-07-24 20:34] LABS: TSH (W/Ref FT4) 0.57 uIU/mL (0.36-3.74)
--- NOTE | 2022-07-24 21:36 | NUR.NOTE ---
Referral faxed to Yarelis [facility] for follow up on migraine headache within a week.Nursing Note:
[2022-07-24 21:55] VITALS: BP 122/62; PULSE 71; RESP 16; O2SAT 100
== END 2022-07-24 21:57 | disposition home or self-care (01) ==
PROVIDERS: Emergency Provider Nurse Practitioner Family; PCP Nurse Practitioner Family
DX: R51.9 Headache, unspecified (principal); H53.8 Other visual disturbances; R71.8 Other abnormality of red blood cells; Z20.822 Contact with and (suspected) exposure to COVID-19
CPT/HCPCS: 80053; 81025; 85652; 96365; 96368; 96375; 99284; 70450; 70486; 84443; 85025; J0131; J1100; J1200; J1885

== ENCOUNTER 2022-10-21 15:57 | Emergency (ER) | payer OTHER, SELFPAY ==
[2022-10-21 16:22] VITALS: BP 113/80; PULSE 104; RESP 14; TEMP 36.6; O2SAT 98
--- NOTE | 2022-10-21 16:43 | ED.GENADUL_ITS ---
Discharge Plan Disposition Patient Disposition: Home Condition: Stable Discharge Details Clinical Impression: Major depression, Suicidal ideation Primary Care Provider: Yarelis Eric ED Provider: Rebecca Dockery Home Meds and New Rx's Prescriptions: Continued methimazole 10 mg tablet 5 mg PO DAILY metoprolol tartrate 37.5 mg tablet 37.5 mg PO PRN PRN albuterol sulfate [ProAir HFA] 8.5 GM HFA aerosol inhaler 4 puff Inhalation Q4H PRN Qty: 1 2RF Rx Instructions: 4 puffs every 4 hours as needed decrease to 2 puffs as you improve ibuprofen 600 MG tablet 600 mg PO Q6H PRN Qty: 25 1RF Zyrtec 10 MG capsule 1 tab PO DAILY PRNQty: 90 fluticasone propionate [Flovent HFA] 110 mcg/actuation HFA aerosol inhaler 2 puff Inhalation DAILY Qty: 1 3RF levonorgestrel-ethinyl estrad [Jolessa] 0.15 mg-30 mcg (91) tablets,dose pack,3 month 1 tab PO DAILY Qty: 91 0RF loratadine 10 mg tablet,chewable 10 mg PO DAILY omeprazole 20 mg capsule,delayed release(DR/EC) 20 mg PO DAILY hydroxyzine HCl 50 mg tablet 50 mg PO Q6H PRN montelukast 10 mg tablet 10 mg PO DAILY budesonide-formoterol [Symbicort] 160-4.5 mcg/actuation HFA aerosol inhaler 1 puff inhalation BID riboflavin (vitamin B2) 100 mg tablet 200 mg PO BID rizatriptan 10 mg tablet 10 mg PO ONCE Rx Instructions: as a single dose gabapentin 100 mg capsule 100 mg PO DAILY Nurtec ODT 75 mg tablet,disintegrating 75 mg PO ONCE PRN (Reason: migraine headache) Qty: 10 3RF Rx Instructions: As a single dose. No more than one dose in 24 hours. Discharge Instructions Instructions: Depression (ED), Help Prevent Suicide (ED) Additional Instructions: safety plan as outlined and agreed upon with mental health return sooner for new or worsening symptoms Referrals: Yarelis Eric [Primary Care Provider] - Discharge Data Discharge Date/Time-TO BE ENTERED AT DEPARTURE: 10/21/22 23:36 Medical Decision Making <Rebecca Dockery NP - Last Filed: 10/25/22 17:55> Medically cleared for psychiatric evaluation which occurred via Zoom meeting. Safety plan established and plan for her to follow-up outpatient with mental health <Jairo Whatley MD - Last Filed: 10/30/22 22:13> Note: I did not evaluate this patient or participate in the care of this patient. The treating provider, SAYRA Dockery, did not request consultation or my involvement in care. HPI <Rebecca Dockery NP - Last Filed: 10/25/22 17:55> General Date/Time Provider Initiated Documentation: 10/21/22 16:05 . Limitations to Documentation: no limitations . Information obtained by: patient . Related Data Home Medications Medication Instructions Recorded Confirmed albuterol sulfate 90 mcg/actuation 4 puff inhalation Q4H PRN ##1 06/15/17 10/21/22 aerosol inhaler (ProAir HFA) ibuprofen 600 mg tablet 600 mg PO Q6H PRN #25 tab-caps 07/03/17 10/21/22 cetirizine 10 mg capsule (Zyrtec) 1 tab PO DAILY PRN #90 tabs 07/25/17 09/26/22 fluticasone propionate 110 2 puff inhalation DAILY ##1 07/12/18 09/26/22 mcg/actuation HFA aerosol inhaler (Flovent HFA) levonorgestrel 0.15 mg-ethinyl 1 tab PO DAILY #91 dose pk 07/30/19 10/21/22 estradiol 30 mcg tablets,3 mos pack(91) (Jolessa) methimazole 10 mg tablet 5 mg PO DAILY 05/10/22 10/21/22 metoprolol tartrate 37.5 mg tablet 37.5 mg PO PRN PRN 05/10/22 10/21/22 budesonide-formoterol HFA 160 1 puff inhalation BID 09/12/22 10/21/22 mcg-4.5 mcg/actuation aerosol inhaler (Symbicort) gabapentin 100 mg capsule 100 mg PO DAILY 09/12/22 hydroxyzine HCl 50 mg tablet 50 mg PO Q6H PRN 09/12/22 10/21/22 loratadine 10 mg chewable tablet 10 mg PO DAILY 09/12/22 10/21/22 montelukast 10 mg tablet 10 mg PO DAILY 09/12/22 10/21/22 omeprazole 20 mg capsule,delayed 20 mg PO DAILY 09/12/22 10/21/22 release riboflavin (vitamin B2) 100 mg 200 mg PO BID 09/12/22 10/21/22 tablet rizatriptan 10 mg tablet 10 mg PO ONCE 09/12/22 rimegepant 75 mg disintegrating 75 mg PO ONCE PRN migraine 10/18/22 10/21/22 tablet (Nurtec ODT) headache #10 tabs Previous Rx's Medication Instructions Recorded albuterol sulfate 90 mcg/actuation 4 puff inhalation Q4H PRN ##1 06/15/17 aerosol inhaler (ProAir HFA) ibuprofen 600 mg tablet 600 mg PO Q6H PRN #25 tab-caps 07/03/17 fluticasone propionate 110 2 puff inhalation DAILY ##1 07/12/18 mcg/actuation HFA aerosol inhaler (Flovent HFA) levonorgestrel 0.15 mg-ethinyl 1 tab PO DAILY #91 dose pk 07/30/19 estradiol 30 mcg tablets,3 mos pack(91) (Jolessa) rimegepant 75 mg disintegrating 75 mg PO ONCE PRN migraine 10/18/22 tablet (Nurtec ODT) headache #10 tabs Allergies Allergy/AdvReac Type Severity Reaction Status Date / Time bupropion [From Wellbutrin] Allergy Severe Verified 10/21/22 17:24 lamotrigine [From Lamictal] Allergy Severe Verified 10/21/22 17:24 sertraline Allergy Severe Verified 10/21/22 17:24 lurasidone [From Latuda] Allergy Intermediate Verified 10/21/22 17:24 propranolol Allergy Intermediate Verified 10/21/22 17:24 varenicline [From Chantix] Allergy Intermediate Verified 10/21/22 17:24 buspirone [From BuSpar] Allergy Mild Verified 10/21/22 17:24 amoxicillin [From Augmentin] AdvReac Intermediate Diarrhea Verified 10/21/22 17:24 clavulanic acid AdvReac Intermediate Diarrhea Verified 10/21/22 17:24 [From Augmentin] General Stated Complaint: PsychEval GRACIELA: 2 PFSH <Rebecca Dockery NP - Last Filed: 10/25/22 17:55> All Active Problems (Updated 10/21/22 @ 23:08 by Rebecca Dockery NP) Major depression (Chronic) Suicidal ideation (Acute) Anxiety (Acute 03/28/17) Asthma (Acute 03/06/14) Contraception (Acute 04/24/17) Neck pain on left side (Acute) Migraine headache without aura (Acute) Medication overuse headache (Acute) Medical History (Updated 10/21/22 @ 23:08 by Rebecca Dockery NP) ADD (attention deficit disorder) Attention deficit Carpal tunnel syndrome Dandruff Depressed Dyspepsia History of neck pain Hypothyroidism Low back pain Menstrual irregularity PTSD (post-traumatic stress disorder) Seasonal allergies Trochanteric bursitis Family History Mother Diabetes 2014 - diet & oral agents for control Dysmenorrhea Mental disorder depression & anxiety Grandfather Diabetes Grandmother Diabetes Maternal Aunt Dysmenorrhea maternal Brother Mental disorder depression & anxiety Social History Smoking/Tobacco Use Status: Never Smoking risk assessment performed?: Yes Alcohol Intake: never Drug use: Never Substance use type: does not use Seatbelt use: always Do you feel safe at home: Yes Do you feel safe in your relationship?: Yes Female Reproductive History Menstrual control method: pills History History 0 Para Hx # Term Pregnancies Multiple births Hx # Pregnancies Ectopic pregnancies AB induced Hx Number of Living Children AB spontaneous Exam <Rebecca Dockery NP - Last Filed: 10/25/22 17:55> Const General: cooperative, healthy appearing, no acute distress and well groomed Orientation: alert, awake and oriented x3 HENMT Head: normal to inspection Ears: hearing grossly normal bilaterally Mouth: oral mucosae normal Eyes Eyelids: eyelids normal Sclera: sclerae normal EOM: EOM intact bilaterally Neck Neck: normal visual inspection and full ROM Resp Effort & Inspection: normal respiratory effort and able to speak in complete sentences Auscultation: clear to auscultation bilaterally Cardio Rate: regular rate Rhythm: regular rhythm Neuro General: patient alert, patient awake, patient oriented x3, gait normal and tone normal Cognition: normal cognition Speech: speech normal Motor: muscle tone normal throughout Course <Rebecca Dockery NP - Last Filed: 10/25/22 17:55> Vital Signs Vital signs: Vital Signs Temperature 36.6 C 10/21/22 16:22 Pulse 104 H 10/21/22 16:22 Respiratory Rate 14 10/21/22 16:22 Blood Pressure 113/80 10/21/22 16:22 Pulse Oximetry 98 10/21/22 16:22 Temperature 36.6 C 10/21/22 16:22 Temperature Source Oral 10/21/22 16:22 Pulse 104 H 10/21/22 16:22 Respiratory Rate 14 10/21/22 16:22 Blood Pressure 113/80 10/21/22 16:22 Blood Pressure Position Sitting 10/21/22 16:22 Pulse Oximetry 98 10/21/22 16:22 Oxygen Delivery Method Room Air 10/21/22 16:22 Oxygen Flow Rate 0 10/21/22 16:22 Pain Level 5 10/21/22 16:22
[2022-10-21 16:59] LABS: Bilirubin Negative (Negative); Blood Negative (Negative); Clarity Clear (Clear); Glucose Negative (Negative); Ketones 40 mg/dL (Negative); Leukocyte Esterase Negative (Negative); Nitrite Negative (Negative); Specific Gravity >= 1.030 (1.005-1.025); Urobilinogen 0.2 mg/dL (Up to 0.2)
[2022-10-21 17:27] LABS: Bacteria Negative HPF (Negative); C & S Indicated? No; Casts Negative LPF (Negative); Crystals Negative HPF (Negative); Epithelial Cells Few HPF (Negative); Mucus Negative (Negative); Other Cells Negative (Negative); RBC 0-2 HPF (0-2); WBC 0-2 HPF (0-5)
[2022-10-21 23:34] VITALS: BP 114/74; PULSE 58; RESP 20; TEMP 36.8; O2SAT 92
[2022-10-21 23:35] VITALS: BP 114/74; PULSE 58; RESP 16; TEMP 36.8; O2SAT 91
--- NOTE | 2022-10-22 11:35 | PDOC.MHCN_ITS ---
Date of service: 10/21/22 Time of Service: 11:35 PHQ-9 Over the last 2 weeks, how often have you been bothered by any of the following problems? 1. Little interest or pleasure in doing things: nearly every day 2. Feeling down, depressed, or hopeless: more than half the days 3. Trouble falling or staying asleep, or sleeping too much: more than half the days 4. Feeling tired or having little energy: nearly every day 5. Poor appetite or overeating: nearly every day 6. Feeling bad about yourself - or that you are a failure or have let yourself and your family down: more than half the days 7. Trouble concentrating on things, such as reading the newspaper or watching television: nearly every day 8. Moving or speaking so slowly that other people could have noticed? - Or the opposite - being so fidgety or restless that you have been moving around a lot more than usual: not at all 9. Thoughts that you would be better off or of hurting yourself in some way: several days Total score: 19 If you checked off any problems, how difficult have these problems made it for you to do your work, take care of things at home, or get along with other people?: very difficult Source: Developed by Drs. Richie Price, Ivy Harrison, Bari Vieira and colleagues, with an educational ganesh from [employer]. Suicide Severity Rate CSSRS Have you wished you were or wished you could go to sleep and not wake up?: Yes Have you actually had any thoughts of killing yourself?: Yes CSSRS2 Have you been thinking about how you might do this?: Yes Have you had these thoughts and had some intention of acting on them?: Yes Have you started to work out or worked out the details of how to kill yourself? Do you intend to carry out this plan?: No CSSRS3 Have you ever done anything, started to do anything or prepared to do anything to end your life?: Yes CSSRS4 Was this within the past three months?: No Screening Score Total Score: 6 Screening: Positive Mental Health Emergency Note Release [facility] release signed:: Yes Reason for Visit Client arrived to the ED on 10.21.22 with complaints of increased anxiety and depression. She was seeking a voluntary admission to a psychiatric facility. In the last 2 weeks has the pt presented for ES prior to today?: Unknown Client Information Client is: New Well Housed: Yes Non Suicidal Self Injury Current: No History: No Safety Risk/Harm to Self or Others Current Ideation to Harm Self or Others: No Risk: Does risk to harm exist?: No Risk: Low Risk Duty to warn indicated: No Asssessment/Mental Status Appearance: Well groomed Attitude: Cooperative Behavior: Unremarkable Speech: Soft Affect: Flat and Cogruent with mood Mood: Depressed and Anxious Thought process: Unremarkable Hallucinations: No Delusions: No Attention: Unremarkable Perception: Not impaired Orientation: Fully orientated Memory: Intact Insight: Good Judgement: Good Neurovegetative Symptoms Sleep: Increase Appetitie: Decrease Interests: Decrease Energy: Decrease Libido: Not applicable Substance Use: Do you use nicotine?: No Have you used substances in the last 7 days?: No Additional Issues: Assaultive/Threatening Behavior: No Medical Concerns: No Client engaged in active self harm w/weapon: No Threatening to run away: No Child reported abuse/neglect: No Voluntarily presenting for services: Yes Domestic violence is a concern: No Extreme Psychosis or extreme behavior is present: No Impression Client is a 22 year old, single, female who lives with her boyfriend in [facility]. 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 Client presents today with an increase of symptoms relating to what appears to be anxiety and depression. She denied being on any medications or in any treatment for said symptoms. Symptoms self-reported are and increase in the need for sleep, and decrease in appetite, energy and interests. In additions, she reported a lessened ability to do self care or her ADL's. She reported being bullied at work by peers but had a difficult time describing what is being said but does express she takes it as constant judgment as they are comments directed at her personal appearance. She denied that she has spoken to management because they won't do anything. At the time of the assessment the client was feeling better and no longer wanted to seek inpatient treatment. She was however, open to a referral for therapy and the [facility] CARE Bed. This will be put in on her behave. Resources Reosurces reviewed and given:: Crisis Bed and [facility] Plan/Disposition Recommended Disposition: PCP/Office visit, Crisis bed, (referral will be sent ) No and [facility] Services: Therapy. Plan: A safety plan was developed and a copy given to the client via ED staff. Client agrees to do daily check in calls at 12 pm through weekend. She agrees to a CARE Bed referral for support. Person reported agreement to plan: Yes Reports/communication Outcome discussed with: ED/Personnel
== END 2022-10-21 23:36 | disposition home or self-care (01) ==
PROVIDERS: Emergency Provider Nurse Practitioner Acute Care; PCP Nurse Practitioner Family
DX: F32.A Depression, unspecified (principal); R45.851 Suicidal ideations
CPT/HCPCS: 81025; 99285; 81003; 81015; 99283

== ENCOUNTER 2022-12-06 14:47 | Outpatient (REF) | payer OTHER, SELFPAY ==
[2022-12-06 15:47] LABS: HCT 43.9 % (36.0-46.0); HGB 14.6 g/dL (11.2-15.7); MCH 30.7 pg (27.0-33.0); MCHC 33.3 % (32.0-36.0); MCV 92 fL (80-95); MPV 12.1 fL (8.0-11.0); Platelet Count 324 10^3/uL (130-400); RBC 4.75 10^6/uL (3.93-5.22); RDW 11.9 % (11.7-14.6); RDW-SD 40.8 fL; WBC 8.21 10^3/uL (4.4-10.8)
[2022-12-06 15:49] LABS: ESR 6 mm/hr (0-20)
[2022-12-06 15:53] LABS: C-Reactive Protein 0.49 mg/dL (0.0-0.3)
[2022-12-08 09:53] LABS: Cyclic Citrullinated Peptide <2.5 U/mL (<5.0)
[2022-12-08 13:11] LABS: ANCA Interpretation Negative (Negative)
[2022-12-08 13:19] LABS: ANA Interpretation Negative (Negative)
== END 2022-12-06 14:48 | disposition home or self-care (01) ==
LOC: NCHCN 14:47
PROVIDERS: PCP Nurse Practitioner Family; Visit Provider Nurse Practitioner Family
DX: E07.9 Disorder of thyroid, unspecified (principal); R21 Rash and other nonspecific skin eruption; R53.83 Other fatigue; F41.9 Anxiety disorder, unspecified; F32.A Depression, unspecified; G43.909 Migraine, unspecified, not intractable, without status migrainosus
CPT/HCPCS: 85027; 85652; 86200; 86255; 86038; 86140

== ENCOUNTER 2023-04-19 18:41 | Outpatient (REF) | payer OTHER, SELFPAY ==
[2023-04-19 21:07] LABS: HCT 41.6 % (36.0-46.0); MCHC 33.7 % (32.0-36.0); MCV 92 fL (80-95); MPV 11.2 fL (8.0-11.0); Platelet Count 321 10^3/uL (130-400); RBC 4.52 10^6/uL (3.93-5.22); RDW 11.9 % (11.7-14.6); RDW-SD 40.4 fL; WBC 9.41 10^3/uL (4.4-10.8)
[2023-04-19 21:27] LABS: ALT 25 U/L (14-59); AST 27 U/L (15-37); Albumin 4.1 g/dL (3.4-5.0); Alkaline Phosphatase 100 U/L (46-116); Anion Gap 5.3 mmol/L (3-11); BUN 12 mg/dL (7-18); Bilirubin, Total 0.3 mg/dL (0.2-1.0); CO2 32.7 mmol/L (21.0-32.0); CREATININE 0.9 mg/dL (0.55-1.02); Calcium 9.2 mg/dL (8.5-10.1); Chloride 102 mmol/L (98-107); Estimated GFR 93.28 (mL/min/1.73m2); Glucose 82 mg/dL (74-106); Potassium 3.9 mmol/L (3.5-5.1); Sodium 140 mmol/L (136-145); TSH 2.37 uIU/mL (0.36-3.74); Total Protein 7.8 g/dL (6.4-8.2)
[2023-04-19 21:34] LABS: Hemoglobin A1C 4.9 % (<5.7)
[2023-04-19 22:09] LABS: T4 6.5 ug/dL (4.7-13.3)
[2023-04-21 13:28] LABS: Chlamydia Result Negative (Negative); GC Result Negative (Negative)
== END 2023-04-19 18:42 | disposition home or self-care (01) ==
LOC: NCHCN 18:41
PROVIDERS: PCP Nurse Practitioner Family; Visit Provider Nurse Practitioner Family
DX: E07.9 Disorder of thyroid, unspecified (principal); R10.2 Pelvic and perineal pain; Z13.1 Encounter for screening for diabetes mellitus; Z11.3 Encounter for screening for infections with a predominantly sexual mode of transmission
CPT/HCPCS: 80053; 85027; 87491; 87591; 83036; 84436; 84443; 84480

== ENCOUNTER 2023-05-09 15:05 | Outpatient (REF) | payer BC, SELFPAY ==
--- NOTE | 2023-05-09 14:50 | PAPFT_PTH ---
PATIENT: Noe Ashby LOC: [facility] U#:[id number] AGE/SX: 22/F ROOM: RE05/09/[address]: Saima Rhodes MD : 2000 BED: DIS: 05/09/2023 SPEC #: [id number] RECD: 05/09/23 18:21 STATUS: [place] REQ #: [id number] LEXY: 05/09/23 14:[address]: Saima Rhodes DEPT: [facility] Cytology RECD BY: Eden Chambers ENTERED: 05/09/23 18:21 SP TYPE: PAPFT OTHR DR: Yarelis Eric Tissues: 1 - CX/ENDOCX FOR PAP SMEARS Procedures: PAP THIN PREP/UVM Screening Comments: [id number]
== END 2023-05-09 15:06 | disposition home or self-care (01) ==
LOC: LBN 15:05
PROVIDERS: PCP Nurse Practitioner Family; Visit Provider Obstetrics & Gynecology
DX: Z12.4 Encounter for screening for malignant neoplasm of cervix (principal)
CPT/HCPCS: 88142

== ENCOUNTER 2023-05-27 15:54 | Outpatient (REF) | payer BC, SELFPAY ==
[2023-05-27 16:59] LABS: Bilirubin Negative (Negative); Blood Large (Negative); Clarity Cloudy (Clear); Glucose Negative (Negative); Ketones Trace mg/dL (Negative); Leukocyte Esterase Negative (Negative); Nitrite Negative (Negative); Specific Gravity >= 1.030 (1.005-1.025); Urobilinogen 0.2 mg/dL (Up to 0.2); pH 5.5 (5-8)
[2023-05-27 17:07] LABS: Bacteria Rare HPF (Negative); Crystals Negative HPF (Negative); Epithelial Cells Rare HPF (Negative); Mucus Negative (Negative)
[2023-05-27 17:08] LABS: C & S Indicated? Yes
== END 2023-05-27 15:55 | disposition home or self-care (01) ==
LOC: LBN 15:54
PROVIDERS: PCP Nurse Practitioner Family; Visit Provider Physician Assistant
DX: N39.0 Urinary tract infection, site not specified (principal)
CPT/HCPCS: 81003; 81015; 87086

== ENCOUNTER 2023-06-01 08:58 | Emergency (ER) | payer BC, SELFPAY ==
[2023-06-01 09:03] VITALS: BP 165/91; PULSE 131; RESP 18; TEMP 36.7; O2SAT 98
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
[2023-06-01 09:20] VITALS: BP 145/85; PULSE 104; RESP 20; TEMP 37.6; O2SAT 97
--- NOTE | 2023-06-01 09:23 | W.EDPROG ---
Date of service: 06/01/23 Time of Service: 09:23 Medical Decision Making I had initially signed up to evaluate this patient however I did not see her nor participate in her care in the emergency department. Discharge Plan Discharge Details Chief Complaint: Urinary Primary Care Provider: Yarelis Eric ED Provider: Jairo Whatley Home Meds and New Rx's Prescriptions: No Action methimazole 10 mg tablet 5 mg PO DAILY metoprolol tartrate 37.5 mg tablet 37.5 mg PO PRN PRN Nurtec ODT 75 mg tablet,disintegrating 75 mg PO ONCE PRN (Reason: migraine headache) Qty: 10 3RF Rx Instructions: As a single dose. No more than one dose in 24 hours. phenazopyridine [Pyridium] 200 mg tablet 200 mg PO TID PRN (Reason: pain) Qty: 6 0RF citalopram [Celexa] 20 mg tablet 20 mg PO DAILY albuterol sulfate [ProAir HFA] 8.5 GM HFA aerosol inhaler 4 puff Inhalation Q4H PRN Qty: 1 2RF Rx Instructions: 4 puffs every 4 hours as needed decrease to 2 puffs as you improve ibuprofen 600 MG tablet 600 mg PO Q6H PRN Qty: 25 1RF Zyrtec 10 MG capsule 1 tab PO DAILY PRNQty: 90 fluticasone propionate [Flovent HFA] 110 mcg/actuation HFA aerosol inhaler 2 puff Inhalation DAILY Qty: 1 3RF loratadine 10 mg tablet,chewable 10 mg PO DAILY omeprazole 20 mg capsule,delayed release(DR/EC) 20 mg PO DAILY hydroxyzine HCl 50 mg tablet 50 mg PO Q6H PRN montelukast 10 mg tablet 10 mg PO DAILY budesonide-formoterol [Symbicort] 160-4.5 mcg/actuation HFA aerosol inhaler 1 puff inhalation BID riboflavin (vitamin B2) 100 mg tablet 200 mg PO BID Hold Instructions: Pt Stopped/Never Started
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
[2023-06-01] MEDS: Lactated Ringers 1,000 ML 1000 ML IV (09:30)
[2023-06-01 09:31] LABS: Bilirubin Negative (Negative); Blood Trace-intact (Negative); Clarity Clear (Clear); Glucose Negative (Negative); Ketones Negative (Negative); Leukocyte Esterase Small (Negative); Nitrite Negative (Negative); Specific Gravity 1.015 (1.005-1.025); Urobilinogen 0.2 mg/dL (Up to 0.2)
[2023-06-01 09:37] LABS: Lactate 1.7 mmol/L (0.6-1.4)
[2023-06-01 09:39] LABS: Abs Immature Grans 0.02 10^3/uL (0.0-0.06); Absolute Basophil Count 0.07 10^3/uL (0.0-0.2); Absolute Eosinophil Count 0.58 10^3/uL (0.0-0.7); Absolute Lymphocyte Count 2.74 10^3/uL (1.2-3.4); Absolute Monocyte Count 0.56 10^3/uL (0.1-0.8); Absolute Neutrophil Count 4.51 10^3/uL (1.2-6.7); Basophils % 0.8; Eosinophils % 6.8; HCT 43.3 % (36.0-46.0); HGB 14.9 g/dL (11.2-15.7); Immature Grans % 0.2; Lymphocytes % 32.3; MCH 30.8 pg (27.0-33.0); MCHC 34.4 % (32.0-36.0); MCV 90 fL (80-95); MPV 10.6 fL (8.0-11.0); Monocytes % 6.6; Neutrophils % 53.3; Platelet Count 324 10^3/uL (130-400); RBC 4.83 10^6/uL (3.93-5.22); RDW 11.9 % (11.7-14.6); WBC 8.48 10^3/uL (4.4-10.8)
[2023-06-01 09:50] LABS: Bacteria Few HPF (Negative); C & S Indicated? Yes; Casts Negative LPF (Negative); Crystals Negative HPF (Negative); Epithelial Cells Few HPF (Negative); Mucus Negative (Negative); RBC 0-2 HPF (0-2)
[2023-06-01 09:54] LABS: ALT 32 U/L (14-59); AST 31 U/L (15-37); Albumin 4.4 g/dL (3.4-5.0); Alkaline Phosphatase 107 U/L (46-116); Anion Gap 9.1 mmol/L (3-11); BUN 10 mg/dL (7-18); Bilirubin, Total 0.3 mg/dL (0.2-1.0); CO2 26.9 mmol/L (21.0-32.0); CREATININE 0.8 mg/dL (0.55-1.02); Calcium 9.8 mg/dL (8.5-10.1); Chloride 104 mmol/L (98-107); Estimated GFR 107.44 (mL/min/1.73m2); Glucose 99 mg/dL (74-106); Potassium 4.6 mmol/L (3.5-5.1); Sodium 140 mmol/L (136-145); Total Protein 8.3 g/dL (6.4-8.2)
[2023-06-01] MEDS: cefTRIAXone 1 GM/50 ML BAG IVPB (10:26)
[2023-06-01 10:28] VITALS: BP 123/78; PULSE 80; RESP 16; TEMP 37.2; O2SAT 98
[2023-06-01 11:12] LABS: TSH (W/Ref FT4) 5.65 uIU/mL (0.36-3.74)
[2023-06-01 11:32] LABS: FREE T4 0.94 ng/dL (0.76-1.46)
--- NOTE | 2023-06-03 09:02 | NUR.NOTE ---
Accessed pt chart to determine antibiotic on discharge for culture. Nursing Note:
--- NOTE | 2023-06-03 09:06 | W.ED.FU ---
Date of service: 06/01/23 Follow Up Plan: Patient evaluated in the emergency department on 1026. Urinalysis and urine culture obtained at that time. Reviewed the culture results. Not true UTI as colony is less than 50,000. However the patient had been treated prior to ED visit with an antibiotic for urine infection. No culture sent at this time. Would continue and complete this course of antibiotic to ensure full treatment.
== END 2023-06-01 12:23 | disposition home or self-care (01) ==
PROVIDERS: Emergency Medicine; Emergency Provider Student in an Organized Health Care Education/Training Program; PCP Nurse Practitioner Family
DX: M54.50 Low back pain, unspecified (principal); N12 Tubulo-interstitial nephritis, not specified as acute or chronic; E05.00 Thyrotoxicosis with diffuse goiter without thyrotoxic crisis or storm; Z79.899 Other long term (current) drug therapy; R00.0 Tachycardia, unspecified; Z87.440 Personal history of urinary (tract) infections
CPT/HCPCS: 00123; 36415; 80053; 81025; 96365; 99284; 81003; 81015; 83605; 84439; 84443; 85025; 87086; J0696

== ENCOUNTER 2023-06-11 13:51 | Emergency (ER) | payer BC, SELFPAY ==
[2023-06-11 13:59] VITALS: BP 125/84; PULSE 92; RESP 16; TEMP 37.2; O2SAT 97
[2023-06-11 14:38] LABS: Bilirubin Negative (Negative); Blood Negative (Negative); Clarity Clear (Clear); Glucose Negative (Negative); Ketones 15 mg/dL (Negative); Leukocyte Esterase Negative (Negative); Nitrite Negative (Negative); Specific Gravity >= 1.030 (1.005-1.025); Urobilinogen 0.2 mg/dL (Up to 0.2); pH 5.5 (5-8)
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
[2023-06-11] MEDS: Ketorolac 15 MG/ML VIAL IM (14:44)
== END 2023-06-11 15:15 | disposition home or self-care (01) ==
PROVIDERS: Emergency Provider Student in an Organized Health Care Education/Training Program; PCP Nurse Practitioner Family
DX: R10.31 Right lower quadrant pain (principal); R10.32 Left lower quadrant pain
CPT/HCPCS: 82962; 99282; 81003; 99283; J1885

== ENCOUNTER 2023-06-21 20:46 | Outpatient (REF) | payer BC, SELFPAY ==
[2023-06-23 14:47] LABS: Chlamydia Result Negative (Negative); GC Result Negative (Negative)
== END 2023-06-21 20:47 | disposition home or self-care (01) ==
LOC: NCHCN 20:46
PROVIDERS: PCP Nurse Practitioner Family; Visit Provider Nurse Practitioner Family
DX: N89.8 Other specified noninflammatory disorders of vagina (principal); R35.0 Frequency of micturition; R39.89 Other symptoms and signs involving the genitourinary system
CPT/HCPCS: 87491; 87591; 87086; 87480; 87510; 87660

== ENCOUNTER 2023-08-18 14:02 | Outpatient (REF) | payer BC, SELFPAY ==
[2023-08-18 19:14] LABS: TSH (W/Ref FT4) 1.63 uIU/mL (0.36-3.74)
== END 2023-08-18 14:03 | disposition home or self-care (01) ==
LOC: LBN 14:02
PROVIDERS: PCP Nurse Practitioner Family; Visit Provider Internal Medicine
DX: E05.90 Thyrotoxicosis, unspecified without thyrotoxic crisis or storm (principal)
CPT/HCPCS: 84443

== ENCOUNTER 2023-09-29 13:20 | Emergency (ER) | payer BC, SELFPAY ==
[2023-09-29 13:12] VITALS: BP 120/82; PULSE 84; RESP 16; O2SAT 99
--- NOTE | 2023-09-29 13:22 | DI.RAD_ITS ---
Exam(s) XR KNEE LT 4V AP,LAT,EVERTON,PAT EXAM: XR KNEE LT 4V AP,LAT,EVERTON,PAT CLINICAL HISTORY: Patellar dislocation. TECHNIQUE: 2D digital imaging was performed of the left knee. Four images were obtained. Merchant, AP, lateral and PA tunnel views were obtained. COMPARISON: No priors for comparison. FINDINGS: BONES: No acute fracture is present. No bony destructive lesion is seen. JOINTS: The knee is normally aligned. No joint effusion is seen. No loose body. SOFT TISSUE: Normal. IMPRESSION: Normal radiographs of the left knee. DATA REPOSITORY: RADIATION DOSE DELIVERED:
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
== END 2023-09-29 14:42 | disposition home or self-care (01) ==
PROVIDERS: Emergency Provider Nurse Practitioner Family; PCP Nurse Practitioner Family
DX: S83.095A Other dislocation of left patella, initial encounter (principal); W50.0XXA Accidental hit or strike by another person, initial encounter; Y93.83 Activity, rough housing and horseplay; Y92.018 Other place in single-family (private) house as the place of occurrence of the external cause; Z87.891 Personal history of nicotine dependence
CPT/HCPCS: 99283; 73564

== ENCOUNTER 2024-05-18 14:03 | Outpatient (CLI) | payer SELFPAY ==
--- NOTE | 2024-05-18 14:00 | DI.RAD_ITS ---
Exam(s) XR CHEST 2V PA LATERAL EXAM: XR CHEST 2V PA LATERAL CLINICAL HISTORY: evaluate pna. TECHNIQUE: 2D digital imaging was performed. COMPARISON: No exams were available for comparison FINDINGS: 2 views: Heart size is normal. The mediastinum is not widened. Lungs are clear. No infiltrates nor pleural effusions. IMPRESSION: No acute pulmonary findings. DATA REPOSITORY: RADIATION DOSE DELIVERED:
--- NOTE | 2024-05-18 15:51 | DI.VRAD_ITS ---
PROCEDURE INFORMATION: Exam: XR Chest Exam date and time: 05/18/2024 2:13 PM Age: 23 years old Clinical indication: Cough TECHNIQUE: Imaging protocol: Radiologic exam of the chest. Views: 2 views. COMPARISON: CT RENAL COLIC WO 04/17/2022 10:57 FINDINGS: Lungs: Bilateral peribronchial thickening seen with viral pneumonia or bronchitis. Vague 1.2 cm nodule overlying the anterior right 6th rib. No focal consolidation. Pleural spaces: Unremarkable. No pleural effusion. No pneumothorax. Heart/Mediastinum: Unremarkable. No cardiomegaly. Bones/joints: Unremarkable for patient's age. IMPRESSION: 1. Bilateral peribronchial thickening consistent with viral pneumonia or bronchitis. 2. Vague 1.2 cm nodule in the lower right lung field, may represent nipple shadow artifact. Recommend repeating film with nipple markers. Dictated and Authenticated by: Sarah Ma MD. Ordering:DIANE Green MD
== END 2024-05-18 14:23 ==
PROVIDERS: PCP Nurse Practitioner Family; Visit Provider Nurse Practitioner Family
DX: R05.9 Cough, unspecified (principal)
CPT/HCPCS: 71046

== ENCOUNTER 2024-06-06 17:20 | Emergency (ER) | payer SELFPAY ==
[2024-06-06 17:29] VITALS: BP 121/82; PULSE 95; TEMP 37.7; O2SAT 92
[2024-06-06 17:35] VITALS: BP 121/82; PULSE 95; TEMP 37.7; O2SAT 92
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
[2024-06-06] MEDS: Albuterol 2.5 MG/3 ML INH SOLN VIAL 5 MG UPD (18:03)
[2024-06-06] MEDS: predniSONE 20 MG TAB 40 MG PO (18:03)
[2024-06-06 18:52] VITALS: BP 102/68; PULSE 93; RESP 16; TEMP 36.8; O2SAT 97
== END 2024-06-06 19:00 | disposition home or self-care (01) ==
LOC: ER 19:00
PROVIDERS: Emergency Provider Emergency Medicine; PCP Family Medicine
DX: J06.9 Acute upper respiratory infection, unspecified (principal); B97.89 Other viral agents as the cause of diseases classified elsewhere; J45.909 Unspecified asthma, uncomplicated; Z87.891 Personal history of nicotine dependence
CPT/HCPCS: 87426; 94640; 99284; J7512; J7613

== ENCOUNTER 2024-06-26 20:04 | Outpatient (REF) | payer SELFPAY | END 2024-06-26 20:05 | disposition home or self-care (01) | LOC: LBN 20:04 | PROVIDERS: PCP Family Medicine; Visit Provider Physician Assistant | DX: N39.0 Urinary tract infection, site not specified (principal); R30.0 Dysuria | CPT/HCPCS: 87077; 87086; 87186; 87480; 87510; 87660 ==

== ENCOUNTER 2024-10-11 14:17 | Outpatient (REF) | payer SELFPAY | END 2024-10-11 14:18 | disposition home or self-care (01) | LOC: NCHCN 14:17 | PROVIDERS: PCP Family Medicine; Visit Provider Family Medicine | DX: E05.90 Thyrotoxicosis, unspecified without thyrotoxic crisis or storm (principal) | CPT/HCPCS: 84439 ==

== ENCOUNTER 2024-11-15 10:54 | Outpatient (REF) | payer SELFPAY | END 2024-11-15 10:55 | disposition home or self-care (01) | LOC: NCHCN 10:54 | PROVIDERS: PCP Family Medicine; Visit Provider Family Medicine | DX: J03.90 Acute tonsillitis, unspecified (principal) | CPT/HCPCS: 87070 ==

== ENCOUNTER 2025-03-02 07:57 | Emergency (ER) | payer SELFPAY ==
[2025-03-02 08:10] VITALS: BP 115/66; PULSE 120; RESP 20; TEMP 37.7; O2SAT 95
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
[2025-03-02] MEDS: Ibuprofen 400 MG TAB PO (08:51)
[2025-03-02] MEDS: Doxycycline Hyclate 100 MG CAP PO (08:51)
[2025-03-02] MEDS: predniSONE 20 MG TAB 60 MG PO (08:52)
[2025-03-02] MEDS: Ondansetron O.D.T. 4 MG TABEF PO (08:52)
[2025-03-02] MEDS: Albuterol/Ipratropium 3 ML UPD VIAL UPD (08:52)
[2025-03-02 09:08] LABS: COVID-19 PCR Negative (Negative); RSV PCR Negative (Negative)
[2025-03-02 10:12] VITALS: PULSE 106; RESP 20; TEMP 37.7; O2SAT 95
[2025-03-02] MEDS: Doxycycline Hyclate 100 MG, 2 CAPS/BTL PO (10:12)
[2025-03-02] MEDS: Budesonide/Formoterol 160/4.5 6 GM 60 PUFF INH IH (10:13)
[2025-03-02 10:21] VITALS: BP 103/62; PULSE 111; RESP 20; O2SAT 94
== END 2025-03-02 10:17 | disposition home or self-care (01) ==
PROVIDERS: Emergency Provider Registered Nurse Emergency; PCP Family Medicine
DX: H66.93 Otitis media, unspecified, bilateral; J45.901 Unspecified asthma with (acute) exacerbation; E03.9 Hypothyroidism, unspecified
CPT/HCPCS: 87637; 87880; 94640; 99283; 87081; J7512; J7620